=== PATIENT | female | born 1980 | race Caucasian/White ===

== ENCOUNTER 2016-07-23 22:05 | Emergency (ER) | payer OTHER ==
--- NOTE | 2016-07-23 22:49 | ED CLINICAL REPORT ---
Clinical Report - Physicians/Mid Levels [facility] [address] [place] [address] 07/23/2016 22:07 Patient: PAULINO PACHECO Time Seen: 22:38 Jul 23 2016. Arrived- By private vehicle. Historian- patient. CPT: ER phys charges level 3 (#[id number]). HISTORY OF PRESENT ILLNESS Chief Complaint: Injury to right knee. The injury happened 5 days [employer]. Occurred at home. ( ( Dropped a box of books on R knee; presents to ED with bruising and swellnig.).). The patient sustained a direct blow. Patient is experiencing moderate pain. No other injury. REVIEW OF SYSTEMS The patient complains of pain on weight bearing. She has had swelling. No weakness, numbness, suspected foreign body or skin laceration. All systems otherwise negative, except as recorded above. PAST HISTORY Medications: Multivitamins Oral. Allergies: No Known Drug Allergy. SOCIAL HISTORY Heavy tobacco smoker (cigarette)- less than 1 pack per day. Alcohol use. History of drug use: marijuana. ADDITIONAL NOTES The nursing notes have been reviewed. PHYSICAL EXAM Vital Signs: 07/23/2016 22:25 BP: 137/92. HR: 95. RR: 12. O2 saturation: 97%. Temp: 98.2 F. Pain level now: 7/10. Back: No tenderness. Skin: Skin intact. Skin warm. Normal skin color. Extremities: Right thigh: moderate tenderness, mild swelling and medium sized ecchymosis located in the lower thigh. Neurovascular intact distally. (No palpable hematoma on exam. Tender over the superior patella tendon, lateral aspect but no defect or patellar tenderness.). No deformity. Extremities otherwise negative. Neuro, Vascular and Tendons: Vascular status intact. Sensation intact. Motor intact. Tendon function intact. Gait: Gait not tested due to pain. Neuro: Oriented X 3. No motor deficit. No sensory deficit. Reflexes normal. PROGRESS AND PROCEDURES Course of Care: Pt with soft tissue injury only. Contusion to the lower quadraceps. No bone tenderness or concern for fracture. Patient/family counseled. Disposition: Discharged. Condition: stable. CLINICAL IMPRESSION Single contusion with soft tissue hematoma to the right thigh. INSTRUCTIONS Elevate affected areas above chest level for seven days until better. You may walk and bear weight as tolerated. (Avoid aspirin, ibuprofen and aleve. Ice every day after work.). Warnings: GENERAL WARNINGS: Return or contact your physician immediately if your condition worsens or changes unexpectedly, if not improving as expected, or if other problems arise. Your Current Medications: CONTINUE TAKING THE FOLLOWING MEDICATIONS: Multivitamins Oral. OTC Medications: Acetaminophen (available over the counter): take according to label instructions. Understanding of the discharge instructions verbalized by patient. (Electronically signed by Vladislav Williamson MD 07/27/2016 10:47)
--- NOTE | 2016-07-23 22:49 | ED CLINICAL REPORT ---
Clinical Report - Physicians/Mid Levels [facility] [address] [place] [address] 07/23/2016 22:07 Patient: PAULINO PACHECO Time Seen: 22:38 Jul 23 2016. Arrived- By private vehicle. Historian- patient. CPT: ER phys charges level 3 (#[id number]). HISTORY OF PRESENT ILLNESS Chief Complaint: Injury to right knee. 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 ( ( Dropped a box of books on R knee; presents to ED with bruising and swellnig.).). The patient sustained a direct blow. Patient is experiencing moderate pain. No other injury. REVIEW OF SYSTEMS The patient complains of pain on weight bearing. She has had swelling. No weakness, numbness, suspected foreign body or skin laceration. All systems otherwise negative, except as recorded above. PAST HISTORY Medications: Multivitamins Oral. Allergies: No Known Drug Allergy. SOCIAL HISTORY Heavy tobacco smoker (cigarette)- less than 1 pack per day. Alcohol use. History of drug use: marijuana. ADDITIONAL NOTES The nursing notes have been reviewed. PHYSICAL EXAM Vital Signs: 07/23/2016 22:25 BP: 137/92. HR: 95. RR: 12. O2 saturation: 97%. Temp: 98.2 F. Pain level now: 7/10. Back: No tenderness. Skin: Skin intact. Skin warm. Normal skin color. Extremities: Right thigh: moderate tenderness, mild swelling and medium sized ecchymosis located in the lower thigh. Neurovascular intact distally. (No palpable hematoma on exam. Tender over the superior patella tendon, lateral aspect but no defect or patellar tenderness.). No deformity. Extremities otherwise negative. Neuro, Vascular and Tendons: Vascular status intact. Sensation intact. Motor intact. Tendon function intact. Gait: Gait not tested due to pain. Neuro: Oriented X 3. No motor deficit. No sensory deficit. Reflexes normal. PROGRESS AND PROCEDURES Course of Care: Pt with soft tissue injury only. Contusion to the lower quadraceps. No bone tenderness or concern for fracture. Patient/family counseled. Disposition: Discharged. Condition: stable. CLINICAL IMPRESSION Single contusion with soft tissue hematoma to the right thigh. INSTRUCTIONS Elevate affected areas above chest level for seven days until better. You may walk and bear weight as tolerated. (Avoid aspirin, ibuprofen and aleve. Ice every day after work.). Warnings: GENERAL WARNINGS: Return or contact your physician immediately if your condition worsens or changes unexpectedly, if not improving as expected, or if other problems arise. Your Current Medications: CONTINUE TAKING THE FOLLOWING MEDICATIONS: Multivitamins Oral. OTC Medications: Acetaminophen (available over the counter): take according to label instructions. Understanding of the discharge instructions verbalized by patient. (Electronically signed by Vladislav Williamson MD 07/27/2016 10:47)
--- NOTE | 2016-07-23 22:49 | ED NURSING NOTES ---
Clinical Report - Nurses [facility] [address] [place] [address] 07/23/2016 22:07 Patient: PAULINO PACHECO TRIAGE Triage time 22:34. Acuity: LEVEL 4. Chief Complaint: INJURY TO KNEE. INJURY TO THE RIGHT KNEE. Alert. No acute distress. SEPSIS SCREEN: Sepsis Screen: negative. Negative (no infection suspected/documented). --22:37 Tyler Mtz R.N. 22:34 07/23/16. Pain level now: 12/04. --22:37 Tyler Mtz R.N. 22:37 07/23/16. BP: deferred. HR: deferred. RR: deferred. O2 saturation: deferred. Temp: deferred. Additional comments: See VS put in the [facility] notes for triage VS. . --22:37 Tyler Mtz R.N. Weight: 86.1 kg stated. Height/Length: 67 inches Per Patient. BMI: 29.8. --22:34 Tyler Mtz R.N. Medications Multivitamins Oral. --22:36 Tyler Mtz R.N. Medication/allergy information source: the patient. --22:37 Tyler Mtz R.N. Allergies No Known Drug Allergy. --22:36 yTler Mtz R.N. History Arrived by private vehicle. Historian: patient. Unaccompanied. ( Dropped a box of books on R knee; presents to ED with bruising and swellnig.). This occurred (about 5 days ago). She has had trouble walking. No numbness or tingling. PAST MEDICAL HX: Last normal menstrual period- today. Denies current . SOCIAL HX: Current every day light tobacco smoker (cigarette)- less than 1/2 a pack per day. Occasional alcohol use. History of drug use: marijuana. Recently used drugs just prior to arrival. The patient has not traveled outside the [place] The patient was not exposed to MRSA. No infectious disease exposure. SELF HARM ASSESSMENT: A self harm assessment was performed. The patient answered "no" to the question "Have you recently felt down, depressed, or hopeless?", "Have you noticed less interest or pleasure in doing things?", "Are you here because you tried to hurt yourself?" and "Have you recently had thoughts about harming or killing others?". FALL RISK ASSESSMENT: Fall risk assessment completed. No fall risk identified. NUTRITIONAL RISK ASSESSMENT: The nutritional risk assessment revealed no deficiencies. FUNCTIONAL ASSESSMENT: Functional assessment: no impairments noted. LEARNING NEEDS ASSESSMENT: The learning needs assessment revealed no barriers. ABUSE ASSESSMENT: Abuse assessment: The patient was asked "Do you feel safe in your home?" and "Has anyone hurt you or threatened to hurt you?". --22:37 Tyler Mtz R.N. 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 --22:37 Tyler Mtz R.N. PROBLEMS: Dental Abscess. Dental Caries. Dental Pain. Immunizations. LNMP - Last Normal Menstrual Period. --22:36 Tyler Mtz R.N. ADDITIONAL SURGERIES: . --22:36 Tyler Mtz R.N. Assessment GENERAL / NEURO / PSYCH: Alert. Oriented X 4. Appears in no acute distress. Western Coma Scale: 15- eyes open spontaneously (4); best verbal response- oriented x 4 (5); best motor response- obeys commands (6). Patient appears calm and cooperative. RESPIRATORY: Respirations not labored. SKIN: Skin is warm and dry. --22:37 Tyler Mtz R.N. Interventions ID band on patient. To treatment room. --22:37 Tyler Mtz R.N. PHYSICAL ASSESSMENT Ambulatory to room. GENERAL / NEURO / PSYCH: Oriented X 4. Alert. Appears in no acute distress. RESPIRATORY: No respiratory distress. Respirations not labored. CVS: Pulses: right dorsalis pedis 2+ and left dorsalis pedis 2+. EXTREMITIES: Limited ROM present. Capillary refill is less than 2 seconds in the extremities. Extremity pulses are within normal limits. Pain with weight bearing. Limping gait. Neuro-vascular status intact to the extremity. Right knee: tenderness and ecchymosis. Limited ROM secondary to pain. No deformity. SKIN: Skin intact. Skin is warm and dry. --22:42 Tyler Mtz R.N. NURSING PROGRESS NOTES 22:25 07/23/16. BP: 137/92. HR: 95. RR: 12. O2 saturation: 97% on room air. Temp: 98.2 F. Pain level now: 7/10. Additional comments: Patient stated pain starts below right knee and shoots up leg all the way to the lower back. --22:27 Alcon Osuna The initial plan of care for this patient has been created This plan of care was discussed with the patient. Cold pack applied to the right ankle. Patient gowned. Reassurance given to the patient. Two patient identifiers checked. Call light placed in reach. Side rails up x 1. Bed placed in lowest position. Brakes of bed on. Patient ready for evaluation- ED physician and PA notified. --22:38 Tyler Mtz R.N. DISPOSITION / DISCHARGE Departure time: 22:54. Condition at departure: stable. The goals identified in the patient's plan of care were met. No learning barriers present. Discharge instructions provided and reviewed with the patient. Activity restrictions (rest) reviewed. Work note given. Patient verbalized understanding. Written instructions provided in Eritrean. ( Paulino verbalizes understanding of all d/c instructions including RICE care, avoid ASA, ibuprofen, and Aleve, and to bear weight as tolerated. She verbalizes need to f/u with PCP if not feeling better. She has no questions and voices no concerns at this time.). The patient was discharged by the physician. She was discharged home and unaccompanied at time of discharge. She left the Emergency Department ambulatory and via private vehicle. Patient driving. GWEN COMA SCORE: Gwen Coma Scale: 15- eyes open spontaneously (4); best verbal response- oriented x 4 (5); best motor response- obeys commands (6). --22:56 Tyler Mtz R.N. 22:54 07/23/16. BP: deferred. HR: deferred. RR: deferred. O2 saturation: deferred. Temp: deferred. Pain level now deferred. --22:56 DeElena, Tyler, R.N. Locked/Released at 07/23/2016 22:57 by Tyler Mtz R.N.
--- NOTE | 2016-07-27 10:47 | ED MAR SUMMARY ---
..... Medication Administration Record [facility] [address] [place] [address] Patient: PAULINO PACHECO Visit ID: [id number] 36y, F Weight: 86.1 kg Height/Length: 67 in BMI: 29.8 ALLERGIES: No Known Drug Allergy
--- NOTE | 2016-07-27 10:47 | ED MED RECONCILIATION SUMMARY ---
Patient: PAULINO PACHECO Medication Reconciliation Report [facility] VisitID: [id number] [address] [place] [address] 36y, F Registration Date/Time: 07/23/2016 Weight: 86.1 kg Height/Length: 67 in. BMI: 29.8 ALLERGIES: No Known Drug Allergy The patient's Home Medications are listed below: CONTINUE TAKING THE FOLLOWING MEDICATIONS: Multivitamins Oral The source(s) of the original Home Medication information: patient The following Medications were given to the patient in the Emergency Department: None. The following Medications were prescribed to the patient: Acetaminophen (available over the counter): take according to label instructions. -- Vladislav Williamson MD
--- NOTE | 2016-07-27 10:47 | ED MAR SUMMARY ---
..... Medication Administration Record [facility] [address] [place] [address] Patient: PAULINO PACHECO Visit ID: [id number] 36y, F Weight: 86.1 kg Height/Length: 67 in BMI: 29.8 ALLERGIES: No Known Drug Allergy
--- NOTE | 2016-07-27 10:47 | ED DISCHARGE INSTRUCTIONS ---
Patient: PAULINO PACHECO General Instructions [facility] VisitID: [id number] [address] [place] [address] 36y, F Registration Date/Time: 07/23/2016 Single contusion with soft tissue hematoma to the right thigh. INSTRUCTIONS Elevate affected areas above chest level for seven days until better. You may walk and bear weight as tolerated. (Avoid aspirin, ibuprofen and aleve. Ice every day after work.). Warnings: GENERAL WARNINGS: Return or contact your physician immediately if your condition worsens or changes unexpectedly, if not improving as expected, or if other problems arise. Your Current Medications: CONTINUE TAKING THE FOLLOWING MEDICATIONS: Multivitamins Oral. OTC Medications: Acetaminophen (available over the counter): take according to label instructions. Understanding of the discharge instructions verbalized by patient. ADDITIONAL INFORMATION Contusion,Soft Tissue You have a CONTUSION, which is a bruise with swelling and some bleeding under the skin. There are no broken bones. This injury takes a few days to a few weeks to heal. Home Care: 1) Keep the injured part elevated to reduce pain and swelling. This is especially important during the first 48 hours. 2) Make an ice pack (ice cubes in a plastic bag, wrapped in a towel) and apply for 20 minutes every 1-2 hours the first day. Continue this 3-4 times a day until the pain and swelling goes away. 3) You may use acetaminophen (Tylenol) or ibuprofen (Motrin, Advil) to control pain, unless another pain medicine was prescribed. [ NOTE : If you have chronic liver or kidney disease or ever had a stomach ulcer or GI bleeding, talk with your doctor before using these medicines.] Follow Up with your doctor or this facility if you are not improving within the next THREE days. [NOTE: If X-rays were taken, they will be reviewed by a radiologist. You will be notified of any new findings that may affect your care.] Get Prompt Medical Attention if any of the following occur: -- Pain or swelling increases -- Injured arm or leg becomes cold, blue, numb or tingly -- Redness, warmth or drainage from the skin You have been given the following additional information: Contusion, Soft Tissue You may walk and bear weight as tolerated. (Electronically signed by Vladislav Williamson MD 07/27/2016 10:47)
--- NOTE | 2016-07-27 10:47 | ED DISCHARGE INSTRUCTIONS ---
Patient: PAULINO PACHECO General Instructions [facility] VisitID: [id number] [address] [place] [address] 36y, F Registration Date/Time: 07/23/2016 Single contusion with soft tissue hematoma to the right thigh. INSTRUCTIONS Elevate affected areas above chest level for seven days until better. You may walk and bear weight as tolerated. (Avoid aspirin, ibuprofen and aleve. Ice every day after work.). Warnings: GENERAL WARNINGS: Return or contact your physician immediately if your condition worsens or changes unexpectedly, if not improving as expected, or if other problems arise. Your Current Medications: CONTINUE TAKING THE FOLLOWING MEDICATIONS: Multivitamins Oral. OTC Medications: Acetaminophen (available over the counter): take according to label instructions. Understanding of the discharge instructions verbalized by patient. ADDITIONAL INFORMATION Contusion,Soft Tissue You have a CONTUSION, which is a bruise with swelling and some bleeding under the skin. There are no broken bones. This injury takes a few days to a few weeks to heal. Home Care: 1) Keep the injured part elevated to reduce pain and swelling. This is especially important during the first 48 hours. 2) Make an ice pack (ice cubes in a plastic bag, wrapped in a towel) and apply for 20 minutes every 1-2 hours the first day. Continue this 3-4 times a day until the pain and swelling goes away. 3) You may use acetaminophen (Tylenol) or ibuprofen (Motrin, Advil) to control pain, unless another pain medicine was prescribed. [ NOTE : If you have chronic liver or kidney disease or ever had a stomach ulcer or GI bleeding, talk with your doctor before using these medicines.] Follow Up with your doctor or this facility if you are not improving within the next THREE days. [NOTE: If X-rays were taken, they will be reviewed by a radiologist. You will be notified of any new findings that may affect your care.] Get Prompt Medical Attention if any of the following occur: -- Pain or swelling increases -- Injured arm or leg becomes cold, blue, numb or tingly -- Redness, warmth or drainage from the skin You have been given the following additional information: Contusion, Soft Tissue You may walk and bear weight as tolerated. (Electronically signed by Vladislav Williamson MD 07/27/2016 10:47)
--- NOTE | 2016-07-27 10:47 | ED MED RECONCILIATION SUMMARY ---
Patient: PAULINO PACHECO Medication Reconciliation Report [facility] VisitID: [id number] [address] [place] [address] 36y, F Registration Date/Time: 07/23/2016 Weight: 86.1 kg Height/Length: 67 in. BMI: 29.8 ALLERGIES: No Known Drug Allergy The patient's Home Medications are listed below: CONTINUE TAKING THE FOLLOWING MEDICATIONS: Multivitamins Oral The source(s) of the original Home Medication information: patient The following Medications were given to the patient in the Emergency Department: None. The following Medications were prescribed to the patient: Acetaminophen (available over the counter): take according to label instructions. -- Vladislav Williamson MD
== END 2016-07-23 22:54 | disposition home or self-care (01) ==
LOC: ED SRH 22:05
DX: S70.11XA Contusion of right thigh, initial encounter (principal); W20.8XXA Other cause of strike by thrown, projected or falling object, initial encounter; Y93.9 Activity, unspecified; Y92.009 Unspecified place in unspecified non-institutional (private) residence as the place of occurrence of the external cause; Y99.9 Unspecified external cause status; F17.210 Nicotine dependence, cigarettes, uncomplicated

== ENCOUNTER 2016-08-17 20:57 | Emergency (ER) | payer OTHER ==
--- NOTE | 2016-08-17 21:18 | ED NURSING NOTES ---
Clinical Report - Nurses [facility] [address] [place] [address] 08/17/2016 20:57 Patient: [id number] TRI[facility] Triage time 21:Aug 17 2016. Acuity: LEVEL 4. Chief Complaint: SKIN PROBLEM and POSSIBLE INSECT BITE 21:08/17/16. SEPSIS SCREEN: Sepsis Screen. Negative (no infection suspected/documented). MICHAEL COMA SCORE: [place] Coma Scale: 15- eyes open spontaneously (4); best verbal response- oriented and converses (5); best motor response- obeys commands (6). --21:06 Rosa Tejeda R.N. 21:03 08/17/16. BP: 142/68. HR: 98. RR: 18. O2 saturation: 98%. Temp: 98.5 F. Pain level now 4/10. --21:06 Rosa Tejeda R.N. Weight: 92.9 kg stated. Height/Length: 67 inches Per Patient. BMI: 32.1. --21:02 Rosa Tejeda R.N. Medications Multivitamins Oral. --21:06 Rosa Tejeda R.N. Allergies No Known Drug Allergy. --21:06 Rosa Tejdea R.N. History Arrived by private vehicle. Historian: patient. Unaccompanied. Reported as located on the left arm. This started today. No fever, muscle aches, headache, cough or itching. No weakness. 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 PAST MEDICAL HX: Denies current . SOCIAL HX: Heavy tobacco smoker (cigarette)- 1 pack per day. Occasional alcohol use. History of drug use: marijuana. No infectious disease exposure. ABUSE ASSESSMENT: No report of abuse. SELF HARM ASSESSMENT: A self harm assessment was performed. The patient answered "no" to the question "Have you recently felt down, depressed, or hopeless?", "Have you noticed less interest or pleasure in doing things?", "Do you have thoughts of harming or killing yourself?", "Are you here because you tried to hurt yourself?", "Have you ever tried to hurt yourself before today?", "Have you recently had thoughts about harming or killing others?" and "Do you have any dangerous items in your possession?". NUTRITIONAL RISK ASSESSMENT: The nutritional risk assessment revealed no deficiencies. FUNCTIONAL ASSESSMENT: Functional assessment: no impairments noted. LEARNING NEEDS ASSESSMENT: The learning needs assessment revealed no barriers. SKIN INTEGRITY ASSESSMENT: Skin integrity risk assessment completed. No skin integrity risk identified. --21: Rosa Tejeda R.N. PROBLEMS: Contusion. Dental Abscess. Dental Caries. --21:06 Rosa Tejeda R.N. ADDITIONAL SURGERIES: Bilateral Tubal Ligation. . --21: Rosa Tejeda R.N. Interventions ID band on patient. --21:06 Rosa Tejeda R.N. PHYSICAL ASSESSMENT 21:08/17/16. Ambulatory to room. GENERAL / NEURO / PSYCH: Alert. The patient does not appear to be in acute distress. Oriented X 4. HEENT: Pupils equal, round and reactive to light. CVS: Pulses within normal limits. SKIN: Skin is warm and dry. Single skin lesion on the left arm. --21: Rosa Tejeda R.N. DISPOSITION / DISCHARGE 22:08/17/16. Departure time: :Aug 17 2016. Condition at departure: improved and stable. The goals identified in the patient's plan of care were met. No learning barriers present. Reviewed medication(s) side effects, precautions, dosing and course information. Prescription(s) given to the patient. Reviewed referral to a primary care physician for followup. Summary of care provided to patient via paper. Patient verbalized understanding. Written instructions provided in Telugu. The patient was discharged home and unaccompanied at time of discharge. She left the Emergency Department ambulatory and via private vehicle. Patient driving. --22:00 Rosa Tejeda R.N. 22:08/17/16. --22:00 Rosa Tejeda R.N. 21:03 08/17/16. BP: 142/68. HR: 98. RR: 18. O2 saturation: 98%. Temp: 98.5 F. Pain level now 09/04. --22:00 Rosa Tejeda R.N. Locked/Released at 08/17/2016 22:00 by Rosa Tejeda R.N.
--- NOTE | 2016-08-17 21:18 | ED CLINICAL REPORT ---
Clinical Report - Physicians/Mid Levels [facility] [address] [place] [address] 08/17/2016 20:57 Patient: PAULINO PACHECO Time Seen: 21:07. Arrived- By private vehicle. Historian- patient. HISTORY OF PRESENT ILLNESS Chief Complaint: SKIN RASH and LESION. This started today and is still present. It was gradual in onset and has been waxing/waning. It is described as painful. It has been located on the left forearm and dorsum of hand. A possible cause has been identified. She had a recent insect bite. Similar symptoms previously: Recent medical care: Not recently seen/assessed. REVIEW OF SYSTEMS No fever, chills, sore throat, cough or difficulty breathing. No headache, chest pain, abdominal pain, nausea or diarrhea. No difficulty with urination, joint pain or vomiting. PAST HISTORY PROBLEMS: Contusion. Dental Abscess. Dental Caries. SURGERIES: Bilateral Tubal Ligation. . Medications: Multivitamins Oral. Allergies: No Known Drug Allergy. SOCIAL HISTORY Smoker- current status unknown. Occasional alcohol use. History of drug use: marijuana. ADDITIONAL NOTES The nursing notes have been reviewed. PHYSICAL EXAM Vital Signs: 08/17/2016 21:03 BP: 142/68. HR: 98. RR: 18. O2 saturation: 98%. Temp: 98.5 F. Appearance: Alert. Oriented X3. Anxious. Patient in mild distress. Eyes: Conjunctivae and eyelids normal. ENT: Pharynx normal. Neck: Neck supple. CVS: Normal heart rate and rhythm. Heart sounds normal. Respiratory: No respiratory distress. Breath sounds normal. Chest nontender. Abdomen: Nontender. No organomegaly. Skin: Small area of erythema with tenderness to left forearm (small left forearm erythematious lesion surrounding superficial abrasion; no fluctuance; no discharge; no lymphadangitis). No warmth, swelling or lymphangitis. Extremities: (small left forearm erythematious lesion surrounding superficial abrasion; no fluctuance; no discharge; no lymphadangitis). Neuro: Oriented X 3. No motor deficit. No sensory deficit. LABS, X-RAYS, AND EKG Pulse Oximetry: 08/17/2016 21:03 O2 saturation: 98%. (FIO2 - room air). Interpretation: normal. PROGRESS AND PROCEDURES Course of Care: No abscess or systemic symptoms. Mild erythema around area of apparent abrasion. I will cover with abx. Patient/family counseled. Old ED records reviewed. Disposition: Discharged. Condition: stable and improved. CLINICAL IMPRESSION Cellulitis of the left forearm. Chronic substance abuse- tobacco (cigarettes), marijuana with anxiety. INSTRUCTIONS Drink plenty of fluids. Do not smoke. Seek medical help to quit smoking. Warnings: Further evaluation is necessary. It is very important to follow up with a physician. GENERAL WARNINGS: Return or contact your physician immediately if your condition worsens or changes unexpectedly, if not improving as expected, or if other problems arise. Your Current Medications: CONTINUE TAKING THE FOLLOWING MEDICATIONS: Multivitamins Oral. Prescription Medications: Bactrim DS 800 mg / 160 mg: Take 1 tablet orally every 12 hours for 7 days. Dispense fourteen (14). No refills. Substitution is permissible. OTC Medications: Acetaminophen (available over the counter): take according to label instructions. Motrin (available over the counter): take according to label instructions. Follow-up: Follow up with your doctor tomorrow. (Electronically signed by Xavier Urena DO 08/18/2016 7:52)
--- NOTE | 2016-08-17 21:18 | ED CLINICAL REPORT ---
Clinical Report - Physicians/Mid Levels [facility] [address] [place] [address] 08/17/2016 20:57 Patient: PAULINO PACHECO Time Seen: 21:07. Arrived- By private vehicle. Historian- patient. HISTORY OF PRESENT ILLNESS Chief Complaint: SKIN RASH and LESION. This started today and is still present. It was gradual in onset and has been waxing/waning. It is described as painful. It has been located on the left forearm and dorsum of hand. A possible cause has been identified. She had a recent insect bite. Similar symptoms previously: Recent medical care: Not recently seen/assessed. REVIEW OF SYSTEMS No fever, chills, sore throat, cough or difficulty breathing. No headache, chest pain, abdominal pain, nausea or diarrhea. No difficulty with urination, joint pain or vomiting. PAST HISTORY PROBLEMS: Contusion. Dental Abscess. Dental Caries. SURGERIES: Bilateral Tubal Ligation. . Medications: Multivitamins Oral. Allergies: No Known Drug Allergy. SOCIAL HISTORY Smoker- current status unknown. Occasional alcohol use. History of drug use: marijuana. ADDITIONAL NOTES The nursing notes have been reviewed. PHYSICAL EXAM Vital Signs: 08/17/2016 21:03 BP: 142/68. HR: 98. RR: 18. O2 saturation: 98%. Temp: 98.5 F. Appearance: Alert. Oriented X3. Anxious. Patient in mild distress. Eyes: Conjunctivae and eyelids normal. ENT: Pharynx normal. Neck: Neck supple. CVS: Normal heart rate and rhythm. Heart sounds normal. Respiratory: No respiratory distress. Breath sounds normal. Chest nontender. Abdomen: Nontender. No organomegaly. Skin: Small area of erythema with tenderness to left forearm (small left forearm erythematious lesion surrounding superficial abrasion; no fluctuance; no discharge; no lymphadangitis). No warmth, swelling or lymphangitis. Extremities: (small left forearm erythematious lesion surrounding superficial abrasion; no fluctuance; no discharge; no lymphadangitis). Neuro: Oriented X 3. No motor deficit. No sensory deficit. LABS, X-RAYS, AND EKG Pulse Oximetry: 08/17/2016 21:03 O2 saturation: 98%. (FIO2 - room air). Interpretation: normal. PROGRESS AND PROCEDURES Course of Care: No abscess or systemic symptoms. Mild erythema around area of apparent abrasion. I will cover with abx. Patient/family counseled. Old ED records reviewed. Disposition: Discharged. Condition: stable and improved. CLINICAL IMPRESSION Cellulitis of the left forearm. Chronic substance abuse- tobacco (cigarettes), marijuana with anxiety. INSTRUCTIONS Drink plenty of fluids. Do not smoke. Seek medical help to quit smoking. Warnings: Further evaluation is necessary. It is very important to follow up with a physician. GENERAL WARNINGS: Return or contact your physician immediately if your condition worsens or changes unexpectedly, if not improving as expected, or if other problems arise. Your Current Medications: CONTINUE TAKING THE FOLLOWING MEDICATIONS: Multivitamins Oral. Prescription Medications: Bactrim DS 800 mg / 160 mg: Take 1 tablet orally every 12 hours for 7 days. Dispense fourteen (14). No refills. Substitution is permissible. OTC Medications: Acetaminophen (available over the counter): take according to label instructions. Motrin (available over the counter): take according to label instructions. Follow-up: Follow up with your doctor tomorrow. (Electronically signed by Xavier Urena DO 08/18/2016 7:52)
--- NOTE | 2016-08-17 21:18 | ED NURSING NOTES ---
Clinical Report - Nurses [facility] [address] [place] [address] 08/17/2016 20:57 [id number] Triage time 21:Aug 17 2016. Acuity: LEVEL 4. Chief Complaint: SKIN PROBLEM and POSSIBLE INSECT BITE 21:08/17/16. SEPSIS SCREEN: Sepsis Screen. Negative (no infection suspected/documented). MICHAEL COMA SCORE: [place] Coma Scale: 15- eyes open spontaneously (4); best verbal response- oriented and converses (5); best motor response- obeys commands (6). --21:06 Rosa Tejeda R.N. 21:03 08/17/16. BP: 142/68. HR: 98. RR: 18. O2 saturation: 98%. Temp: 98.5 F. Pain level now 4/10. --21:06 Rosa Tejeda R.N. Weight: 92.9 kg stated. Height/Length: 67 inches Per Patient. BMI: 32.1. --21:02 Rosa Tejeda R.N. Medications Multivitamins Oral. --21:06 Rosa Tejeda R.N. Allergies No Known Drug Allergy. --21:06 Rosa Tejeda R.N. History Arrived by private vehicle. Historian: patient. Unaccompanied. Reported as located on the left arm. This started today. No fever, muscle aches, headache, cough or itching. No weakness. 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 PAST MEDICAL HX: Denies current . SOCIAL HX: Heavy tobacco smoker (cigarette)- 1 pack per day. Occasional alcohol use. History of drug use: marijuana. No infectious disease exposure. ABUSE ASSESSMENT: No report of abuse. SELF HARM ASSESSMENT: A self harm assessment was performed. The patient answered "no" to the question "Have you recently felt down, depressed, or hopeless?", "Have you noticed less interest or pleasure in doing things?", "Do you have thoughts of harming or killing yourself?", "Are you here because you tried to hurt yourself?", "Have you ever tried to hurt yourself before today?", "Have you recently had thoughts about harming or killing others?" and "Do you have any dangerous items in your possession?". NUTRITIONAL RISK ASSESSMENT: The nutritional risk assessment revealed no deficiencies. FUNCTIONAL ASSESSMENT: Functional assessment: no impairments noted. LEARNING NEEDS ASSESSMENT: The learning needs assessment revealed no barriers. SKIN INTEGRITY ASSESSMENT: Skin integrity risk assessment completed. No skin integrity risk identified. --21: Rosa Tejeda R.N. PROBLEMS: Contusion. Dental Abscess. Dental Caries. --21:06 Rosa Tejeda R.N. ADDITIONAL SURGERIES: Bilateral Tubal Ligation. . --21: Rosa Tejeda R.N. Interventions ID band on patient. --21:06 Rosa Tejeda R.N. PHYSICAL ASSESSMENT 21:08/17/16. Ambulatory to room. GENERAL / NEURO / PSYCH: Alert. The patient does not appear to be in acute distress. Oriented X 4. HEENT: Pupils equal, round and reactive to light. CVS: Pulses within normal limits. SKIN: Skin is warm and dry. Single skin lesion on the left arm. --21: Rosa Tejeda R.N. DISPOSITION / DISCHARGE 22:08/17/16. Departure time: :Aug 17 2016. Condition at departure: improved and stable. The goals identified in the patient's plan of care were met. No learning barriers present. Reviewed medication(s) side effects, precautions, dosing and course information. Prescription(s) given to the patient. Reviewed referral to a primary care physician for followup. Summary of care provided to patient via paper. Patient verbalized understanding. Written instructions provided in Yoruba. The patient was discharged home and unaccompanied at time of discharge. She left the Emergency Department ambulatory and via private vehicle. Patient driving. --22:00 Rosa Tejeda R.N. 22:08/17/16. --22:00 Rosa Tejeda R.N. 21:03 08/17/16. BP: 142/68. HR: 98. RR: 18. O2 saturation: 98%. Temp: 98.5 F. Pain level now 09/04. --22:00 Rosa Tejeda R.N. Locked/Released at 08/17/2016 22:00 by Rosa Tejeda R.N.
--- NOTE | 2016-08-18 07:52 | ED MED RECONCILIATION SUMMARY ---
Patient: PAULINO PACHECO Medication Reconciliation Report [facility] VisitID: [id number] [address] [place] [address] 36y, F Registration Date/Time: 08/17/2016 Weight: 92.9 kg Height/Length: 67 in. BMI: 32.1 ALLERGIES: No Known Drug Allergy The patient's Home Medications are listed below: CONTINUE TAKING THE FOLLOWING MEDICATIONS: Multivitamins Oral The source(s) of the original Home Medication information: Not obtained. The following Medications were given to the patient in the Emergency Department: None. The following Medications were prescribed to the patient: Acetaminophen (available over the counter): take according to label instructions. -- Xavier Urena DO Motrin (available over the counter): take according to label instructions. -- Xavier Urena DO Bactrim DS 800 mg / 160 mg: Take 1 tablet orally every 12 hours for 7 days. Dispense fourteen (14). No refills. Substitution is permissible. -- Xavier Urena DO
--- NOTE | 2016-08-18 07:52 | ED MED RECONCILIATION SUMMARY ---
Patient: PAULINO PACHECO Medication Reconciliation Report [facility] VisitID: [id number] [address] [place] [address] 36y, F Registration Date/Time: 08/17/2016 Weight: 92.9 kg Height/Length: 67 in. BMI: 32.1 ALLERGIES: No Known Drug Allergy The patient's Home Medications are listed below: CONTINUE TAKING THE FOLLOWING MEDICATIONS: Multivitamins Oral The source(s) of the original Home Medication information: Not obtained. The following Medications were given to the patient in the Emergency Department: None. The following Medications were prescribed to the patient: Acetaminophen (available over the counter): take according to label instructions. -- Xavier Urena DO Motrin (available over the counter): take according to label instructions. -- Xavier Urena DO Bactrim DS 800 mg / 160 mg: Take 1 tablet orally every 12 hours for 7 days. Dispense fourteen (14). No refills. Substitution is permissible. -- Xavier Urena DO
--- NOTE | 2016-08-18 07:52 | ED MAR SUMMARY ---
..... Medication Administration Record [facility] [address] [place] [address] Patient: PAULINO PACHECO Visit ID: [id number] 36y, F Weight: 92.9 kg Height/Length: 67 in BMI: 32.1 ALLERGIES: No Known Drug Allergy
--- NOTE | 2016-08-18 07:52 | ED MAR SUMMARY ---
..... Medication Administration Record [facility] [address] [place] [address] Patient: PAULINO PACHECO Visit ID: [id number] 36y, F Weight: 92.9 kg Height/Length: 67 in BMI: 32.1 ALLERGIES: No Known Drug Allergy
--- NOTE | 2016-08-18 07:52 | ED DISCHARGE INSTRUCTIONS ---
Patient: PAULINO PACHECO General Instructions [facility] VisitID: [id number] [address] [place] [address] 36y, F Registration Date/Time: 08/17/2016 Cellulitis of the left forearm. Chronic substance abuse- tobacco (cigarettes), marijuana with anxiety. INSTRUCTIONS Drink plenty of fluids. Do not smoke. Seek medical help to quit smoking. Warnings: Further evaluation is necessary. It is very important to follow up with a physician. GENERAL WARNINGS: Return or contact your physician immediately if your condition worsens or changes unexpectedly, if not improving as expected, or if other problems arise. Your Current Medications: CONTINUE TAKING THE FOLLOWING MEDICATIONS: Multivitamins Oral. Prescription Medications: Bactrim DS 800 mg / 160 mg: Take 1 tablet orally every 12 hours for 7 days. Dispense fourteen (14). No refills. Substitution is permissible. OTC Medications: Acetaminophen (available over the counter): take according to label instructions. Motrin (available over the counter): take according to label instructions. Follow-up: Follow up with your doctor tomorrow. ADDITIONAL INFORMATION Cellulitis You have an infection of the skin known as cellulitis. This usually starts with a scrape, cut, insect bite, blister or other opening in the skin which becomes infected. This is a serious condition. It must be watched closely to be sure the infection is not spreading. With antibiotic treatment, the size of the red area will gradually shrink in size until the skin returns to normal. This will take 7-10 days. The red area should never increase in size once the antibiotic medicine has been started. Occasionally, an infection will be resistant to one antibiotic and another one will have to be used. Home Care: 1) Limit the use of the affected part, since excess movement can cause the infection to spread. 2) If the infection is on your leg, walk as little as possible during the first few days of the treatment. Keep your leg elevated while sitting. This will reduce swelling. 3) Take all of the antibiotic medicine exactly as directed until it is gone. Be careful not to miss any doses, especially during the first seven days. Follow Up with your doctor or this facility as directed. Check the infected area daily for the warning signs listed below. Get Prompt Medical Attention if any of the following occur: -- Spreading area of redness -- Increasing swelling or pain -- Appearance of pus or drainage -- Fever over 100.4 F (38.0 C) oral, or over 101.4 F (38.6 C) rectal, after two days on antibiotics Marijuana Abuse Marijuana is the most widely used illegal drug in the [place]. It is called by various names such as pot, weed, blunts, grass, reefer, ganja, hash, hashish. It is usually smoked but can be mixed with foods or brewed as a tea. It is sometimes sold with PCP (Drake Dust) or amphetamine mixed in it. These drugs can cause other harmful side effects. Marijuana can cause the following effects: Changes in mood (stimulated, happy, drowsy, depressed, paranoid) Hallucinations Increased heart rate and blood pressure Increased appetite Time distortion, difficulty concentrating, impaired memory Lung damage (similar to cigarettes with chronic cough, wheezing, frequent colds and bronchitis) You can become psychologically dependent on marijuana. That means the craving to use the drug is emotional or psychological rather than due to physical withdrawal. Is Marijuana Running Your Life? Here are some of the signs: Relying on marijuana to feel good, forget problems, deal with stress or to relax Wanting to be alone most of the time or only with others who use drugs Losing interest in things that used to be important Changes in school or job performance or attendance Spending a lot of time thinking about how to get marijuana Stealing or selling your things so you can buy marijuana Unable to stop using even though you may want to quit Increasing anxiety, anger,or depression Sleeping too much, changes in eating habits (weight loss or gain) Needing to use more to get the same effect Home Care Once you have become addicted to any drug, quitting is hard to do. Most people find they can't quit without help. So, dont try to do this alone. Talk to someone you trust who can support you. Seek professional help. Avoid people and places where drugs are used. That only increases the temptation to use. Follow Up with your doctor or as advised by our staff. For more information or a referral to a treatment center in your area, contact: Your local mental health center or the National Alcohol and Substance Abuse Information Center (482)-453-6118 www.addictioncareoptions.com National [place] on Alcoholism and Drug Dependence 181-405-BIND www.ncadd.org Marijuana Anonymous 169-787-9103 www.marijuana-anonymous.org Get Prompt Medical Attention if any of the following occur: You feel extreme depression, fear, anxiety, or anger toward yourself or others You feel out of control You feel that you may try to harm yourself or another How To Quit Smoking Smoking is one of the hardest habits to break. About half of all those who have ever smoked have been able to quit, and most of those (about 70%) who still smoke want to quit. Here are some of the best ways to stop smoking. Keep Trying: It takes most smokers about 8 tries before they are finally able to fully quit. So, the more often you try and fail, the better your chance of quitting the next time! So, don't give up! Go Cold [place]: Most ex-smokers quit cold turkey. Trying to cut back gradually doesn't seem to work as well, perhaps because it continues the smoking habit. Also, it is possible to fool yourself by inhaling more while smoking fewer cigarettes. This results in the same amount of nicotine in your body! Get Support: Support programs can make an important difference, especially for the heavy smoker. These groups offer lectures, methods to change your behavior and peer support. Call the free national Quitline for more information. 004-KMXS-CBA (169-547-3844). Low-cost or free programs are offered by many hospitals, local chapters of the [place] [employer] (932-701-7918) and the [place] [employer] (204-982-0492). Support at home is important too. Non-smokers can help by offering praise and encouragement. If the smoker fails to quit, encourage them to try again! [id number] Medicines: For those who can't quit on their own, Nicotine Replacement Therapy (NRT) may make quitting much easier. Certain aids such as the nicotine patch, gum and lozenge are available without a prescription. However, it is best to use these under the guidance of your doctor. The skin patch provides a steady supply of nicotine to the body. Nicotine gum and lozenge gives temporary bursts of low levels of nicotine. Both methods take the edge off the craving for cigarettes. WARNING: If you feel symptoms of nicotine overdose, such as nausea, vomiting, dizziness, weakness, or fast heartbeat, stop using these and see your doctor. Prescription Medicines: After evaluating your smoking patterns and prior attempts at quitting, your doctor may offer a prescription medicine such as bupropion (Zyban, Wellbutrin), varenicline (Chantix, Champix), a niocotine inhaler or nasal spray. Each has its unique advantage and side effects which your doctor can review with you. Health Benefits Of Quitting: The benefits of quitting start right away and keep improving the longer you go without smokin minutes: blood pressure and pulse return to normal 8 hours: oxygen levels return to normal 2 days: ability to smell and taste begins to improve as damaged nerves start to regrow 2-3 weeks: circulation and lung function improves 1-9 months: decreased cough, congestion and shortness of breath; less tired 1 year: risk of heart attack decreases by half 5 years: risk of lung cancer decreases by half; risk of stroke becomes the same as a non-smoker For information about how to quit smoking, visit the following links: National Cancer [employer] , Clearing the Air, Quit Smoking Today - an online booklet. http://www.smokefree.gov/pubs/clearing_the_air.pdf Smokefree.gov http://smokefree.gov/ QuitNet http://www.quitnet.com/ Sulfamethoxazole, Trimethoprim Oral tablet What is this medicine? SULFAMETHOXAZOLE; TRIMETHOPRIM or SMX-TMP (suhl fuh meth OK richard zohl; trye METH oh prim) is a combination of a sulfonamide antibiotic and a second antibiotic, trimethoprim. It is used to treat or prevent certain kinds of bacterial infections. It will not work for colds, flu, or other viral infections. How should I use this medicine? Take this medicine by mouth with a full glass of water. Follow the directions on the prescription label. Take your medicine at regular intervals. Do not take it more often than directed. Do not skip doses or stop your medicine early. Talk to your screwhead stoner and polisher regarding the use of this medicine in children. Special care may be needed. This medicine has been used in children as young as 2 months of age. What side effects may I notice from receiving this medicine? Side effects that you should report to your doctor or health inpatient care manager rn as soon as possible: allergic reactions like skin rash or hives, swelling of the face, lips, or tongue breathing problems fever or chills, sore throat irregular heartbeat, chest pain joint or muscle pain pain or difficulty passing urine red pinpoint spots on skin redness, blistering, peeling or loosening of the skin, including inside the mouth unusual bleeding or bruising unusually weak or tired yellowing of the eyes or skin Side effects that usually do not require medical attention (report to your doctor or health inpatient care manager rn if they continue or are bothersome): diarrhea dizziness headache loss of appetite nausea, vomiting nervousness What may interact with this medicine? Do not take this medicine with any of the following medications: aminobenzoate potassium dofetilide metronidazole This medicine may also interact with the following medications: SHAHZAD inhibitors like benazepril, enalapril, lisinopril, and ramipril cyclosporine digoxin diuretics indomethacin medicines for diabetes methenamine methotrexate phenytoin potassium supplements pyrimethamine sulfinpyrazone tricyclic antidepressants warfarin What if I miss a dose? If you miss a dose, take it as soon as you can. If it is almost time for your next dose, take only that dose. Do not take double or extra doses. Where should I keep my medicine? Keep out of the reach of children. Store at room temperature between 20 to 25 degrees C (68 to 77 degrees F). Protect from light. Throw away any unused medicine after the expiration date. What should I tell my health care provider before I take this medicine? They need to know if you have any of these conditions: anemia asthma being treated with anticonvulsants if you frequently drink alcohol containing drinks kidney disease liver disease low level of folic acid or [id number] dehydrogenase poor nutrition or malabsorption porphyria severe allergies thyroid disorder an unusual or allergic reaction to sulfamethoxazole, trimethoprim, sulfa drugs, other medicines, foods, dyes, or preservatives or trying to get breast-feeding What should I watch for while using this medicine? Tell your doctor or health inpatient care manager rn if your symptoms do not improve. Drink several glasses of water a day to reduce the risk of kidney problems. Do not treat diarrhea with over the counter products. Contact your doctor if you have diarrhea that lasts more than 2 days or if it is severe and watery. This medicine can make you more sensitive to the sun. Keep out of the sun. If you cannot avoid being in the sun, wear protective clothing and use a sunscreen. Do not use sun lamps or tanning beds/booths. Acetaminophen Oral tablet What is this medicine? ACETAMINOPHEN (a set a DAVID elsa fen) is a pain reliever. It is used to treat mild pain and fever. How should I use this medicine? Take this medicine by mouth with a glass of water. Follow the directions on the package or prescription label. Take your medicine at regular intervals. Do not take your medicine more often than directed. Talk to your screwhead stoner and polisher regarding the use of this medicine in children. While this drug may be prescribed for children as young as 6 years of age for selected conditions, precautions do apply. What side effects may I notice from receiving this medicine? Side effects that you should report to your doctor or health inpatient care manager rn as soon as possible: allergic reactions like skin rash, itching or hives, swelling of the face, lips, or tongue breathing problems fever or sore throat redness, blistering, peeling or loosening of the skin, including inside the mouth trouble passing urine or change in the amount of urine unusual bleeding or bruising unusually weak or tired yellowing of the eyes or skin Side effects that usually do not require medical attention (report to your doctor or health inpatient care manager rn if they continue or are bothersome): headache nausea, stomach upset What may interact with this medicine? alcohol imatinib isoniazid other medicines with acetaminophen What if I miss a dose? If you miss a dose, take it as soon as you can. If it is almost time for your next dose, take only that dose. Do not take double or extra doses. Where should I keep my medicine? Keep out of reach of children. Store at room temperature between 20 and 25 degrees C (68 and 77 degrees F). Protect from moisture and heat. Throw away any unused medicine after the expiration date. What should I tell my health care provider before I take this medicine? They need to know if you have any of these conditions: if you frequently drink alcohol containing drinks liver disease an unusual or allergic reaction to acetaminophen, other medicines, foods, dyes or preservatives or trying to get breast-feeding What should I watch for while using this medicine? Tell your doctor or health inpatient care manager rn if the pain lasts more than 10 days (5 days for children), if it gets worse, or if there is a new or different kind of pain. Also, check with your doctor if a fever lasts for more than 3 days. Do not take other medicines that contain acetaminophen with this medicine. Always read labels carefully. If you have questions, ask your doctor or pharmacist. If you take too much acetaminophen get medical help right away. Too much acetaminophen can be very dangerous and cause liver damage. Even if you do not have symptoms, it is important to get help right away. Ibuprofen Oral tablet What is this medicine? IBUPROFEN (eye BYOO proe fen) is a non-steroidal anti-inflammatory drug (NSAID). It is used for dental pain, fever, headaches or migraines, osteoarthritis, rheumatoid arthritis, or painful monthly periods. It can also relieve minor aches and pains caused by a cold, flu, or sore throat. How should I use this medicine? Take this medicine by mouth with a glass of water. Follow the directions on the prescription label. Take this medicine with food if your stomach gets upset. Try to not lie down for at least 10 minutes after you take the medicine. Take your medicine at regular intervals. Do not take your medicine more often than directed. A special MedGuide will be given to you by the pharmacist with each prescription and refill. Be sure to read this information carefully each time. Talk to your screwhead stoner and polisher regarding the use of this medicine in children. Special care may be needed. What side effects may I notice from receiving this medicine? Side effects that you should report to your doctor or health inpatient care manager rn as soon as possible: allergic reactions like skin rash, itching or hives, swelling of the face, lips, or tongue black or bloody stools, blood in the urine or in vomit breathing problems changes in vision chest pain general ill feeling or flu-like symptoms nausea or vomiting redness, blistering, peeling or loosening of the skin, including inside the mouth slurred speech or weakness on one side of the body stomach pain unexplained weight gain or swelling unusually weak or tired yellowing of eyes or skin Side effects that usually do not require medical attention (report to your doctor or health inpatient care manager rn if they continue or are bothersome): constipation or diarrhea dizziness gas or heartburn stomach upset What may interact with this medicine? Do not take this medicine with any of the following medications: cidofovir ketorolac methotrexate pemetrexed This medicine may also interact with the following medications: alcohol aspirin diuretics lithium other drugs for inflammation like prednisone warfarin What if I miss a dose? If you miss a dose, take it as soon as you can. If it is almost time for your next dose, take only that dose. Do not take double or extra doses. Where should I keep my medicine? Keep out of the reach of children. Store at room temperature between 15 and 30 degrees C (59 and 86 degrees F). Keep container tightly closed. Throw away any unused medicine after the expiration date. What should I tell my health care provider before I take this medicine? They need to know if you have any of these conditions: asthma cigarette smoker drink more than 3 alcohol containing drinks a day heart disease or circulation problems such as heart failure or leg edema (fluid retention) high blood pressure kidney disease liver disease stomach bleeding or ulcers an unusual or allergic reaction to ibuprofen, aspirin, other NSAIDS, other medicines, foods, dyes, or preservatives or trying to get breast-feeding What should I watch for while using this medicine? Tell your doctor or healthcare professional if your symptoms do not start to get better or if they get worse. This medicine does not prevent heart attack or stroke. In fact, this medicine may increase the chance of a heart attack or stroke. The chance may increase with longer use of this medicine and in people who have heart disease. If you take aspirin to prevent heart attack or stroke, talk with your doctor or health inpatient care manager rn. Do not take other medicines that contain aspirin, ibuprofen, or naproxen with this medicine. Side effects such as stomach upset, nausea, or ulcers may be more likely to occur. Many medicines available without a prescription should not be taken with this medicine. This medicine can cause ulcers and bleeding in the stomach and intestines at any time during treatment. Ulcers and bleeding can happen without warning symptoms and can cause . To reduce your risk, do not smoke cigarettes or drink alcohol while you are taking this medicine. You may get drowsy or dizzy. Do not drive, use machinery, or do anything that needs mental alertness until you know how this medicine affects you. Do not stand or sit up quickly, especially if you are an older patient. This reduces the risk of dizzy or fainting spells. This medicine can cause you to bleed more easily. Try to avoid damage to your teeth and gums when you brush or floss your teeth. You have been given the following additional information: Cellulitis Marijuana Abuse Smoking Cessation Sulfamethoxazole, Trimethoprim Oral tablet Acetaminophen Oral tablet Ibuprofen Oral tablet (Electronically signed by Xavier Urena DO 08/18/2016 7:52)
--- NOTE | 2016-08-18 07:52 | ED DISCHARGE INSTRUCTIONS ---
Patient: PAULINO PACHECO General Instructions [facility] VisitID: [id number] [address] [place] [address] 36y, F Registration Date/Time: 08/17/2016 Cellulitis of the left forearm. Chronic substance abuse- tobacco (cigarettes), marijuana with anxiety. INSTRUCTIONS Drink plenty of fluids. Do not smoke. Seek medical help to quit smoking. Warnings: Further evaluation is necessary. It is very important to follow up with a physician. GENERAL WARNINGS: Return or contact your physician immediately if your condition worsens or changes unexpectedly, if not improving as expected, or if other problems arise. Your Current Medications: CONTINUE TAKING THE FOLLOWING MEDICATIONS: Multivitamins Oral. Prescription Medications: Bactrim DS 800 mg / 160 mg: Take 1 tablet orally every 12 hours for 7 days. Dispense fourteen (14). No refills. Substitution is permissible. OTC Medications: Acetaminophen (available over the counter): take according to label instructions. Motrin (available over the counter): take according to label instructions. Follow-up: Follow up with your doctor tomorrow. ADDITIONAL INFORMATION Cellulitis You have an infection of the skin known as cellulitis. This usually starts with a scrape, cut, insect bite, blister or other opening in the skin which becomes infected. This is a serious condition. It must be watched closely to be sure the infection is not spreading. With antibiotic treatment, the size of the red area will gradually shrink in size until the skin returns to normal. This will take 7-10 days. The red area should never increase in size once the antibiotic medicine has been started. Occasionally, an infection will be resistant to one antibiotic and another one will have to be used. Home Care: 1) Limit the use of the affected part, since excess movement can cause the infection to spread. 2) If the infection is on your leg, walk as little as possible during the first few days of the treatment. Keep your leg elevated while sitting. This will reduce swelling. 3) Take all of the antibiotic medicine exactly as directed until it is gone. Be careful not to miss any doses, especially during the first seven days. Follow Up with your doctor or this facility as directed. Check the infected area daily for the warning signs listed below. Get Prompt Medical Attention if any of the following occur: -- Spreading area of redness -- Increasing swelling or pain -- Appearance of pus or drainage -- Fever over 100.4 F (38.0 C) oral, or over 101.4 F (38.6 C) rectal, after two days on antibiotics Marijuana Abuse Marijuana is the most widely used illegal drug in the [place]. It is called by various names such as pot, weed, blunts, grass, reefer, ganja, hash, hashish. It is usually smoked but can be mixed with foods or brewed as a tea. It is sometimes sold with PCP (Drake Dust) or amphetamine mixed in it. These drugs can cause other harmful side effects. Marijuana can cause the following effects: Changes in mood (stimulated, happy, drowsy, depressed, paranoid) Hallucinations Increased heart rate and blood pressure Increased appetite Time distortion, difficulty concentrating, impaired memory Lung damage (similar to cigarettes with chronic cough, wheezing, frequent colds and bronchitis) You can become psychologically dependent on marijuana. That means the craving to use the drug is emotional or psychological rather than due to physical withdrawal. Is Marijuana Running Your Life? Here are some of the signs: Relying on marijuana to feel good, forget problems, deal with stress or to relax Wanting to be alone most of the time or only with others who use drugs Losing interest in things that used to be important Changes in school or job performance or attendance Spending a lot of time thinking about how to get marijuana Stealing or selling your things so you can buy marijuana Unable to stop using even though you may want to quit Increasing anxiety, anger,or depression Sleeping too much, changes in eating habits (weight loss or gain) Needing to use more to get the same effect Home Care Once you have become addicted to any drug, quitting is hard to do. Most people find they can't quit without help. So, dont try to do this alone. Talk to someone you trust who can support you. Seek professional help. Avoid people and places where drugs are used. That only increases the temptation to use. Follow Up with your doctor or as advised by our staff. For more information or a referral to a treatment center in your area, contact: Your local mental health center or the National Alcohol and Substance Abuse Information Center (481)-658-9766 www.addictioncareoptions.com National [place] on Alcoholism and Drug Dependence 392-749-NPRN www.ncadd.org Marijuana Anonymous 678-268-0789 www.marijuana-anonymous.org Get Prompt Medical Attention if any of the following occur: You feel extreme depression, fear, anxiety, or anger toward yourself or others You feel out of control You feel that you may try to harm yourself or another How To Quit Smoking Smoking is one of the hardest habits to break. About half of all those who have ever smoked have been able to quit, and most of those (about 70%) who still smoke want to quit. Here are some of the best ways to stop smoking. Keep Trying: It takes most smokers about 8 tries before they are finally able to fully quit. So, the more often you try and fail, the better your chance of quitting the next time! So, don't give up! Go Cold Clover: Most ex-smokers quit cold turkey. Trying to cut back gradually doesn't seem to work as well, perhaps because it continues the smoking habit. Also, it is possible to fool yourself by inhaling more while smoking fewer cigarettes. This results in the same amount of nicotine in your body! Get Support: Support programs can make an important difference, especially for the heavy smoker. These groups offer lectures, methods to change your behavior and peer support. Call the free national Quitline for more information. 250-OQGE-GIT (818-426-0112). Low-cost or free programs are offered by many hospitals, local chapters of the [place] [employer] (170-941-1965) and the [place] [employer] (825-841-5376). Support at home is important too. Non-smokers can help by offering praise and encouragement. If the smoker fails to quit, encourage them to try again! Vmdf-Ule-Hzioqrn Medicines: For those who can't quit on their own, Nicotine Replacement Therapy (NRT) may make quitting much easier. Certain aids such as the nicotine patch, gum and lozenge are available without a prescription. However, it is best to use these under the guidance of your doctor. The skin patch provides a steady supply of nicotine to the body. Nicotine gum and lozenge gives temporary bursts of low levels of nicotine. Both methods take the edge off the craving for cigarettes. WARNING: If you feel symptoms of nicotine overdose, such as nausea, vomiting, dizziness, weakness, or fast heartbeat, stop using these and see your doctor. Prescription Medicines: After evaluating your smoking patterns and prior attempts at quitting, your doctor may offer a prescription medicine such as bupropion (Zyban, Wellbutrin), varenicline (Chantix, Champix), a niocotine inhaler or nasal spray. Each has its unique advantage and side effects which your doctor can review with you. Health Benefits Of Quitting: The benefits of quitting start right away and keep improving the longer you go without smokin minutes: blood pressure and pulse return to normal 8 hours: oxygen levels return to normal 2 days: ability to smell and taste begins to improve as damaged nerves start to regrow 2-3 weeks: circulation and lung function improves 1-9 months: decreased cough, congestion and shortness of breath; less tired 1 year: risk of heart attack decreases by half 5 years: risk of lung cancer decreases by half; risk of stroke becomes the same as a non-smoker For information about how to quit smoking, visit the following links: National Cancer [place] , Clearing the Air, Quit Smoking Today - an online booklet. http://www.smokefree.gov/pubs/clearing_the_air.pdf Smokefree.gov http://smokefree.gov/ QuitNet http://www.quitnet.com/ Sulfamethoxazole, Trimethoprim Oral tablet What is this medicine? SULFAMETHOXAZOLE; TRIMETHOPRIM or SMX-TMP (suhl fuh meth OK richard zohl; trye METH oh prim) is a combination of a sulfonamide antibiotic and a second antibiotic, trimethoprim. It is used to treat or prevent certain kinds of bacterial infections. It will not work for colds, flu, or other viral infections. How should I use this medicine? Take this medicine by mouth with a full glass of water. Follow the directions on the prescription label. Take your medicine at regular intervals. Do not take it more often than directed. Do not skip doses or stop your medicine early. Talk to your pearl glue drier regarding the use of this medicine in children. Special care may be needed. This medicine has been used in children as young as 2 months of age. What side effects may I notice from receiving this medicine? Side effects that you should report to your doctor or health client care manager as soon as possible: allergic reactions like skin rash or hives, swelling of the face, lips, or tongue breathing problems fever or chills, sore throat irregular heartbeat, chest pain joint or muscle pain pain or difficulty passing urine red pinpoint spots on skin redness, blistering, peeling or loosening of the skin, including inside the mouth unusual bleeding or bruising unusually weak or tired yellowing of the eyes or skin Side effects that usually do not require medical attention (report to your doctor or health client care manager if they continue or are bothersome): diarrhea dizziness headache loss of appetite nausea, vomiting nervousness What may interact with this medicine? Do not take this medicine with any of the following medications: aminobenzoate potassium dofetilide metronidazole This medicine may also interact with the following medications: SHAHZAD inhibitors like benazepril, enalapril, lisinopril, and ramipril cyclosporine digoxin diuretics indomethacin medicines for diabetes methenamine methotrexate phenytoin potassium supplements pyrimethamine sulfinpyrazone tricyclic antidepressants warfarin What if I miss a dose? If you miss a dose, take it as soon as you can. If it is almost time for your next dose, take only that dose. Do not take double or extra doses. Where should I keep my medicine? Keep out of the reach of children. Store at room temperature between 20 to 25 degrees C (68 to 77 degrees F). Protect from light. Throw away any unused medicine after the expiration date. What should I tell my health care provider before I take this medicine? They need to know if you have any of these conditions: anemia asthma being treated with anticonvulsants if you frequently drink alcohol containing drinks kidney disease liver disease low level of folic acid or [id number] dehydrogenase poor nutrition or malabsorption porphyria severe allergies thyroid disorder an unusual or allergic reaction to sulfamethoxazole, trimethoprim, sulfa drugs, other medicines, foods, dyes, or preservatives or trying to get breast-feeding What should I watch for while using this medicine? Tell your doctor or health client care manager if your symptoms do not improve. Drink several glasses of water a day to reduce the risk of kidney problems. Do not treat diarrhea with over the counter products. Contact your doctor if you have diarrhea that lasts more than 2 days or if it is severe and watery. This medicine can make you more sensitive to the sun. Keep out of the sun. If you cannot avoid being in the sun, wear protective clothing and use a sunscreen. Do not use sun lamps or tanning beds/booths. Acetaminophen Oral tablet What is this medicine? ACETAMINOPHEN (a set a DAVID elsa fen) is a pain reliever. It is used to treat mild pain and fever. How should I use this medicine? Take this medicine by mouth with a glass of water. Follow the directions on the package or prescription label. Take your medicine at regular intervals. Do not take your medicine more often than directed. Talk to your pearl glue drier regarding the use of this medicine in children. While this drug may be prescribed for children as young as 6 years of age for selected conditions, precautions do apply. What side effects may I notice from receiving this medicine? Side effects that you should report to your doctor or health client care manager as soon as possible: allergic reactions like skin rash, itching or hives, swelling of the face, lips, or tongue breathing problems fever or sore throat redness, blistering, peeling or loosening of the skin, including inside the mouth trouble passing urine or change in the amount of urine unusual bleeding or bruising unusually weak or tired yellowing of the eyes or skin Side effects that usually do not require medical attention (report to your doctor or health client care manager if they continue or are bothersome): headache nausea, stomach upset What may interact with this medicine? alcohol imatinib isoniazid other medicines with acetaminophen What if I miss a dose? If you miss a dose, take it as soon as you can. If it is almost time for your next dose, take only that dose. Do not take double or extra doses. Where should I keep my medicine? Keep out of reach of children. Store at room temperature between 20 and 25 degrees C (68 and 77 degrees F). Protect from moisture and heat. Throw away any unused medicine after the expiration date. What should I tell my health care provider before I take this medicine? They need to know if you have any of these conditions: if you frequently drink alcohol containing drinks liver disease an unusual or allergic reaction to acetaminophen, other medicines, foods, dyes or preservatives or trying to get breast-feeding What should I watch for while using this medicine? Tell your doctor or health client care manager if the pain lasts more than 10 days (5 days for children), if it gets worse, or if there is a new or different kind of pain. Also, check with your doctor if a fever lasts for more than 3 days. Do not take other medicines that contain acetaminophen with this medicine. Always read labels carefully. If you have questions, ask your doctor or pharmacist. If you take too much acetaminophen get medical help right away. Too much acetaminophen can be very dangerous and cause liver damage. Even if you do not have symptoms, it is important to get help right away. Ibuprofen Oral tablet What is this medicine? IBUPROFEN (eye BYOO proe fen) is a non-steroidal anti-inflammatory drug (NSAID). It is used for dental pain, fever, headaches or migraines, osteoarthritis, rheumatoid arthritis, or painful monthly periods. It can also relieve minor aches and pains caused by a cold, flu, or sore throat. How should I use this medicine? Take this medicine by mouth with a glass of water. Follow the directions on the prescription label. Take this medicine with food if your stomach gets upset. Try to not lie down for at least 10 minutes after you take the medicine. Take your medicine at regular intervals. Do not take your medicine more often than directed. A special MedGuide will be given to you by the pharmacist with each prescription and refill. Be sure to read this information carefully each time. Talk to your pearl glue drier regarding the use of this medicine in children. Special care may be needed. What side effects may I notice from receiving this medicine? Side effects that you should report to your doctor or health client care manager as soon as possible: allergic reactions like skin rash, itching or hives, swelling of the face, lips, or tongue black or bloody stools, blood in the urine or in vomit breathing problems changes in vision chest pain general ill feeling or flu-like symptoms nausea or vomiting redness, blistering, peeling or loosening of the skin, including inside the mouth slurred speech or weakness on one side of the body stomach pain unexplained weight gain or swelling unusually weak or tired yellowing of eyes or skin Side effects that usually do not require medical attention (report to your doctor or health client care manager if they continue or are bothersome): constipation or diarrhea dizziness gas or heartburn stomach upset What may interact with this medicine? Do not take this medicine with any of the following medications: cidofovir ketorolac methotrexate pemetrexed This medicine may also interact with the following medications: alcohol aspirin diuretics lithium other drugs for inflammation like prednisone warfarin What if I miss a dose? If you miss a dose, take it as soon as you can. If it is almost time for your next dose, take only that dose. Do not take double or extra doses. Where should I keep my medicine? Keep out of the reach of children. Store at room temperature between 15 and 30 degrees C (59 and 86 degrees F). Keep container tightly closed. Throw away any unused medicine after the expiration date. What should I tell my health care provider before I take this medicine? They need to know if you have any of these conditions: asthma cigarette smoker drink more than 3 alcohol containing drinks a day heart disease or circulation problems such as heart failure or leg edema (fluid retention) high blood pressure kidney disease liver disease stomach bleeding or ulcers an unusual or allergic reaction to ibuprofen, aspirin, other NSAIDS, other medicines, foods, dyes, or preservatives or trying to get breast-feeding What should I watch for while using this medicine? Tell your doctor or healthcare professional if your symptoms do not start to get better or if they get worse. This medicine does not prevent heart attack or stroke. In fact, this medicine may increase the chance of a heart attack or stroke. The chance may increase with longer use of this medicine and in people who have heart disease. If you take aspirin to prevent heart attack or stroke, talk with your doctor or health client care manager. Do not take other medicines that contain aspirin, ibuprofen, or naproxen with this medicine. Side effects such as stomach upset, nausea, or ulcers may be more likely to occur. Many medicines available without a prescription should not be taken with this medicine. This medicine can cause ulcers and bleeding in the stomach and intestines at any time during treatment. Ulcers and bleeding can happen without warning symptoms and can cause . To reduce your risk, do not smoke cigarettes or drink alcohol while you are taking this medicine. You may get drowsy or dizzy. Do not drive, use machinery, or do anything that needs mental alertness until you know how this medicine affects you. Do not stand or sit up quickly, especially if you are an older patient. This reduces the risk of dizzy or fainting spells. This medicine can cause you to bleed more easily. Try to avoid damage to your teeth and gums when you brush or floss your teeth. You have been given the following additional information: Cellulitis Marijuana Abuse Smoking Cessation Sulfamethoxazole, Trimethoprim Oral tablet Acetaminophen Oral tablet Ibuprofen Oral tablet (Electronically signed by Xavier Urena DO 08/18/2016 7:52)
== END 2016-08-17 22:00 | disposition home or self-care (01) ==
LOC: ED SRH 20:57
DX: L03.114 Cellulitis of left upper limb (principal); F17.210 Nicotine dependence, cigarettes, uncomplicated; F12.180 Cannabis abuse with cannabis-induced anxiety disorder

== ENCOUNTER 2016-11-23 02:53 | Emergency (ER) | payer OTHER ==
--- NOTE | 2016-11-23 04:10 | ED ORDER SUMMARY ---
..... Patient: PAULINO PACHECO OrderSheet [facility] VisitID: [id number] [place] [address] 36y, F Registration Date/Time: 11/23/2016 ORDER SHEET Weight: 91.6 kg (stated) Allergies: No Known Drug Allergy GENERAL ORDERS: UA-Culture if indicated Urgent (03:11/23/2016 Kenny VALLADARES) (Ack 3:34 Theo ER Merchant Tailor) (3:36 CHernandez R.N.) Urine Urgent (03:11/23/2016 Kenny VALLADARES) (Ack 3:34 Theo ER Merchant Tailor) (3:37 Cookienandez R.N.) CBC w Diff Urgent (03:11/23/2016 Kenny VALLADARES) (Ack 3:34 Theo ER Merchant Tailor) (3:46 Cookienandez R.N.) CMP Urgent (03:11/23/2016 Kenny VALLADARES) (Ack 3:34 Theo ER Merchant Tailor) (3:46 CHernandez R.N.) MEDICATION ORDERS: Bactrim DS PO (Tablet 800-160 mg) 1 tab (NOW) (04:04 11/23/2016 Kenny VALLADARES) (Ack 4:12 Richard R.N.) (4:15 Cookienandez R.N.) IV FLUIDS: IV Saline Lock (03:11/23/2016 Kenny VALLADARES) (Ack 3:34 Richard R.N.) (3:46 Cookienandez R.N.) ORDER SHEET NOTES: [Electronically signed by Tobi Bell R.N. (04:34 11/23/2016)] [Electronically signed by Madalyn Hernandez MD (04:39 11/23/2016)] [Electronically locked/signed by Tobi Bell R.N. (04:34 11/23/2016)]
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
--- NOTE | 2016-11-23 04:10 | ED ORDER SUMMARY ---
..... Patient: PAULINO PACHECO OrderSheet [facility] VisitID: [id number] [place] [address] 36y, F Registration Date/Time: 11/23/2016 ORDER SHEET Weight: 91.6 kg (stated) Allergies: No Known Drug Allergy GENERAL ORDERS: UA-Culture if indicated Urgent (03:11/23/2016 Kenny VALLADARES) (Ack 3:34 Theo ER Steersman) (3:36 CHernandez R.N.) Urine Urgent (03:11/23/2016 Kenny VALLADARES) (Ack 3:34 Theo ER Steersman) (3:37 Cookienandez R.N.) CBC w Diff Urgent (03:11/23/2016 Kenny VALLADARES) (Ack 3:34 Theo ER Steersman) (3:46 Cookienandez R.N.) CMP Urgent (03:11/23/2016 Kenny VALLADARES) (Ack 3:34 Theo ER Steersman) (3:46 CHernandez R.N.) MEDICATION ORDERS: Bactrim DS PO (Tablet 800-160 mg) 1 tab (NOW) (04:04 11/23/2016 Kenny VALLADARES) (Ack 4:12 Richard R.N.) (4:15 Cookienandez R.N.) IV FLUIDS: IV Saline Lock (03:11/23/2016 Kenny VALLADARES) (Ack 3:34 Richard R.N.) (3:46 Cookienandez R.N.) ORDER SHEET NOTES: [Electronically signed by Tobi Bell R.N. (04:34 11/23/2016)] [Electronically signed by Madalyn Hernandez MD (04:39 11/23/2016)] [Electronically locked/signed by Tobi Bell R.N. (04:34 11/23/2016)]
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
--- NOTE | 2016-11-23 04:39 | ED MED RECONCILIATION SUMMARY ---
Patient: PAULINO PACHECO Medication Reconciliation Report [facility] VisitID: [id number] [address] [place] [address] 36y, F Registration Date/Time: 11/23/2016 Weight: 91.6 kg Height/Length: 66 in. BMI: 32.6 ALLERGIES: No Known Drug Allergy The patient's Home Medications are listed below: CONTINUE TAKING THE FOLLOWING MEDICATIONS: Multivitamins Oral The source(s) of the original Home Medication information: patient The following Medications were given to the patient in the Emergency Department: Bactrim DS [PO] PO 1 tab, administered: 11/23/2016 4:15:00 AM The following Medications were prescribed to the patient: Ibuprofen 800 mg tablets: take 1 tablet orally every 8 hours as needed for pain. Dispense twenty (20). No refill. -- Madalyn Hernandez MD Bactrim DS 800 mg / 160 mg: take 1 tablet orally every 12 hours for 7 days. No refill. Substitution is permissible. -- Madalyn Hernandez MD
--- NOTE | 2016-11-23 04:39 | ED MAR SUMMARY ---
..... Medication Administration Record [facility] [address] [place] [address] Patient: PAULINO PACHECO Visit ID: [id number] 36y, F Weight: 91.6 kg Height/Length: 66 in BMI: 32.6 ALLERGIES: No Known Drug Allergy Given 04:15 11/23/2016 Tobi Bell RKrystin Medication Administered: BACTRIM DS [PO] (SULFAMETHOXAZOLE-TMP DS), Dose: 1 tab Tablets PO. Medication Ordered: Bactrim DS PO (Tablet 800-160 mg) 1 tab (NOW).
--- NOTE | 2016-11-23 04:39 | ED MAR SUMMARY ---
..... Medication Administration Record [facility] [address] [place] [address] Patient: PAULINO PACHECO Visit ID: [id number] 36y, F Weight: 91.6 kg Height/Length: 66 in BMI: 32.6 ALLERGIES: No Known Drug Allergy Given 04:15 11/23/2016 Tobi Bell RKrystin Medication Administered: BACTRIM DS [PO] (SULFAMETHOXAZOLE-TMP DS), Dose: 1 tab Tablets PO. Medication Ordered: Bactrim DS PO (Tablet 800-160 mg) 1 tab (NOW).
--- NOTE | 2016-11-23 04:39 | ED MED RECONCILIATION SUMMARY ---
Patient: PAULINO PACHECO Medication Reconciliation Report [facility] VisitID: [id number] [address] [place] [address] 36y, F Registration Date/Time: 11/23/2016 Weight: 91.6 kg Height/Length: 66 in. BMI: 32.6 ALLERGIES: No Known Drug Allergy The patient's Home Medications are listed below: CONTINUE TAKING THE FOLLOWING MEDICATIONS: Multivitamins Oral The source(s) of the original Home Medication information: patient The following Medications were given to the patient in the Emergency Department: Bactrim DS [PO] PO 1 tab, administered: 11/23/2016 4:15:00 AM The following Medications were prescribed to the patient: Ibuprofen 800 mg tablets: take 1 tablet orally every 8 hours as needed for pain. Dispense twenty (20). No refill. -- Madalyn Hernandez MD Bactrim DS 800 mg / 160 mg: take 1 tablet orally every 12 hours for 7 days. No refill. Substitution is permissible. -- Madalyn Hernandez MD
== END 2016-11-23 04:34 | disposition home or self-care (01) ==
LOC: ED SRH 02:53
DX: N30.00 Acute cystitis without hematuria (principal); N93.8 Other specified abnormal uterine and vaginal bleeding; N92.1 Excessive and frequent menstruation with irregular cycle; R10.84 Generalized abdominal pain; V43.52XA Car driver injured in collision with other type car in traffic accident, initial encounter; Y93.89 Activity, other specified; Y92.410 Unspecified street and highway as the place of occurrence of the external cause
CPT/HCPCS: 90004; 90100; 90469; 93070; 95059